=== PATIENT | male | born 1975 | race Caucasian/White ===

== ENCOUNTER 2017-08-26 10:51 | Emergency (ER) | payer MEDICAID ==
[~2017-08-26] VITALS: Ht 165.1 cm; Wt 78.0 kg
[~2017-08-26 10:51] MED LIST: NOCURR
[2017-08-26] MEDS ORDERED: PERTUSS(ACELL),DIPH,TET VAC/PF 0.5 ML VIAL IM ONE (12:15)
[2017-08-26] MEDS ORDERED: IBUPROFEN 800 MG TABLET PO ONE (12:30)
[2017-08-26 13:25] VITALS: BP 133/77
== END 2017-08-26 13:50 | disposition home or self-care (01) ==
LOC: EDUNIT# 10:51 → EMS 10:56
DX: L03.116 Cellulitis of left lower limb (principal)
CPT/HCPCS: 90471; 90715; 99284

== ENCOUNTER 2019-09-15 20:56 | Emergency (ER) | payer SELFPAY ==
[~2019-09-15] VITALS: Ht 165.1 cm; Wt 56.8 kg
[2019-09-15 21:06] VITALS: BP 133/88
[2019-09-15] MEDS ORDERED: BUPIVACAINE HCL/PF 0.25% 10 ML VIAL INJ ONE (21:15)
[2019-09-15] MEDS ORDERED: PERTUSS(ACELL),DIPH,TET VAC/PF 0.5 ML VIAL IM ONE (21:15)
== END 2019-09-15 22:12 | disposition home or self-care (01) ==
LOC: EMS 20:59
DX: S61.216A Laceration without foreign body of right little finger without damage to nail, initial encounter (principal); W26.0XXA Contact with knife, initial encounter; Y93.89 Activity, other specified; Y92.89 Other specified places as the place of occurrence of the external cause; Y99.8 Other external cause status
CPT/HCPCS: 12001; 73140; 90471; 90715; 99283; J3490